=== PATIENT | male | born 1945 | race Caucasian/White ===

== ENCOUNTER 2016-10-10 14:45 | Emergency (ER) | payer BC ==
[~2016-10-10] VITALS: Ht 185.4 cm; Wt 135.5 kg
[2016-10-10] MEDS ORDERED: CRES10TA32 PO (15:00)
[2016-10-10] MEDS ORDERED: CENTTAB36 PO (15:00)
[2016-10-10] MEDS ORDERED: WARF05TA GT (15:00)
[2016-10-10] MEDS ORDERED: IBUP-1022 PO (15:00)
[2016-10-10] MEDS ORDERED: HYZA50TA2 PO (15:00)
[2016-10-10] MEDS ORDERED: METO1TAB7 PO (15:00)
[2016-10-10 16:40] LABS: BASO % 0.8 % (0.0-1.0); EOS # 0.1 K/mm3 (0.0-0.50); EOS % 1.7 % (0.0-3.0); LARGE UNSTAINED CELL # 0.2 K/mm3 (0.0-0.4); LYMPH # 1.3 K/mm3 (1.5-4.5); LYMPH % 17.8 % (24.0-44.0); MEAN CORPUSCULAR HEMOGLOBIN 33.8 pg (27.0-33.0); MEAN CORPUSCULAR HGB CONC 33.8 g/dl (32.0-36.5); MEAN CORPUSCULAR VOLUME 100.2 fl (80.0-96.0); MONO # 0.7 K/mm3 (0.0-0.8); MONO % 12.1 % (0.0-5.0); NEUTROPHILS % 64.6 % (36.0-66.0); PLATELET COUNT, AUTOMATED 184 k/mm3 (150-450); RED CELL DISTRIBUTION WIDTH 13.3 % (11.5-14.5); WHITE BLOOD COUNT 6.2 K/mm3 (4.0-10.0)
[2016-10-10 16:44] LABS: INR 2.68
[2016-10-10 16:53] LABS: ALBUMIN 3.7 GM/DL (3.2-5.2); ALBUMIN/GLOBULIN RATIO 1.03 (1.00-1.93); ALKALINE PHOSPHATASE 52 U/L (45-117); ALT/SGPT 46 U/L (12-78); ANION GAP 10 MEQ/L (8-16); AST/SGOT 39 U/L (15-37); BILIRUBIN,DIRECT 0.2 MG/DL (0.0-0.2); BILIRUBIN,TOTAL 0.6 MG/DL (0.2-1.0); BLOOD UREA NITROGEN 25 MG/DL (7-18); CALCIUM LEVEL 8.6 MG/DL (8.8-10.2); CARBON DIOXIDE LEVEL 25 MEQ/L (21-32); CHLORIDE LEVEL 104 MEQ/L (98-107); CREATININE FOR GFR 1.18 MG/DL (0.70-1.30); FREE T4 1.06 NG/DL (0.76-1.46); GLOMERULAR FILTRATION RATE > 60.0 (>42); GLUCOSE, FASTING 95 MG/DL (83-110); SODIUM LEVEL 139 MEQ/L (136-145); TOTAL PROTEIN 7.3 GM/DL (6.4-8.2)
--- NOTE | 2016-10-10 16:56 | REP ---
Clinical: Chest pain . Comparison: None . Findings: Cardiomegaly is suggested. The lung abraham are clear without acute consolidation, effusion, or pneumothorax. Skeletal structures are intact. Impression: Cardiomegaly. Signed by Estevan Corcoran MD 10/10/2016 04:48 P
[2016-10-10] MEDS ORDERED: NS 500 ML IV ONE (17:30)
[2016-10-10 18:11] VITALS: BP 176/113
--- NOTE | 2016-10-11 21:01 | ECGEPIP ---
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
== END 2016-10-10 18:40 | disposition home or self-care (01) ==
LOC: M ED 14:45
DX: I48.91 Unspecified atrial fibrillation (principal); R00.2 Palpitations; E86.0 Dehydration; R94.31 Abnormal electrocardiogram [ECG] [EKG]; I51.7 Cardiomegaly; E11.9 Type 2 diabetes mellitus without complications; Z79.01 Long term (current) use of anticoagulants; Z79.899 Other long term (current) drug therapy